=== PATIENT | female | born 1995 | race African-American/Black ===

== ENCOUNTER 2020-08-02 06:36 | Emergency (ER) | payer SELFPAY | END 2020-08-02 07:29 | disposition home or self-care (01) | LOC: ERS 06:36 | DX: M54.6 Pain in thoracic spine (principal); F17.210 Nicotine dependence, cigarettes, uncomplicated | CPT/HCPCS: 99283 ==

== ENCOUNTER 2020-08-30 12:30 | Emergency (ER) | payer MEDICAID | END 2020-08-30 15:58 | disposition home or self-care (01) | LOC: ERS 12:30 | DX: O03.4 Incomplete spontaneous abortion without complication (principal); F17.210 Nicotine dependence, cigarettes, uncomplicated | CPT/HCPCS: 36415; 84702; 99284 ==

== ENCOUNTER 2021-07-14 10:46 | Emergency (ER) | payer SELFPAY | END 2021-07-14 13:00 | disposition home or self-care (01) | LOC: ERS 10:46 | DX: L60.0 Ingrowing nail (principal); F17.210 Nicotine dependence, cigarettes, uncomplicated | CPT/HCPCS: 99283 ==

== ENCOUNTER 2023-09-14 22:31 | Emergency (ER) | payer OTHER ==
[2023-09-14 23:15] LABS: #Basophils Less than 0.03 10x3/uL (0.0-0.2); %Basophils 0.2 % (0.0-1.0); %Eosinophils 2.3 % (0.0-10.0); %Lymphocytes 15.4 % (21.0-51.0); %Monocytes 5.9 % (0.0-10.0); %Neutrophils 75.5 % (42.0-75.0); Hematocrit 29.9 % (36.0-47.0); Hemoglobin 9.6 g/dL (12.0-16.0); Mean Corpuscular HGB CONC 32.1 g/dL (32.0-36.0); Mean Corpuscular Hemoglobin 28.3 pg (27.0-31.0); Mean Corpuscular Volume 88.2 fL (78.0-98.0); Mean Platelet Volume 9.9 fL (7.4-10.4); Platelet Count 201 10x3/uL (130-400); Red Blood Cell (RBC) Count 3.39 mill/uL (4.20-5.40)
[2023-09-15] MEDS ORDERED: Betamet Acet/Betamet Na Ph 30 MG/5 ML VIAL IM SCH (01:30)
[2023-09-15] MEDS ORDERED: Terbutaline Sulfate 1 MG/ML VIAL SC SCH (01:30)
[2023-09-15] MEDS ORDERED: Terbutaline Sulfate 1 MG/ML VIAL ONE (01:41)
== END 2023-09-15 01:51 | disposition short-term general hospital (02) ==
LOC: ERS 22:31
DX: O60.03 Preterm labor without delivery, third trimester (principal); O99.333 Smoking (tobacco) complicating pregnancy, third trimester; Z3A.33 33 weeks gestation of pregnancy
CPT/HCPCS: 85025; 86850; 86900; 86901; 96372; J0702; J3105